=== PATIENT | female | born 1935 | race Hispanic/Latino ===

== ENCOUNTER 2019-09-05 10:54 | Emergency (ER) | payer OTHER, MEDICARE ==
[2019-09-05] MEDS ORDERED: KETOROLAC TROMETHAMINE 15MG/ML ONE (12:11)
== END 2019-09-05 15:03 | disposition home or self-care (01) ==
LOC: EDH 10:54
DX: S29.012A Strain of muscle and tendon of back wall of thorax, initial encounter (principal); S39.012A Strain of muscle, fascia and tendon of lower back, initial encounter; Z90.49 Acquired absence of other specified parts of digestive tract; Z90.710 Acquired absence of both cervix and uterus; W18.39XA Other fall on same level, initial encounter; Y93.89 Activity, other specified; Y92.89 Other specified places as the place of occurrence of the external cause; Y99.8 Other external cause status
CPT/HCPCS: 70450; 71250; 72125; 74176; 96372; 99284; J1885